=== PATIENT | female | born 2000 | race Caucasian/White ===

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

== ENCOUNTER 2020-11-11 10:55 | Outpatient (REF) | payer OTHER, SELFPAY ==
[2020-11-12 15:04] LABS: COVID-19 RT-PCR UVMMC Result Negative (Negative)
== END 2020-11-11 10:56 | disposition home or self-care (01) ==
LOC: NCHCN 10:55
PROVIDERS: PCP Internal Medicine; Visit Provider Internal Medicine
DX: J02.9 Acute pharyngitis, unspecified (principal)
CPT/HCPCS: U0003

== ENCOUNTER 2021-04-01 13:30 | Outpatient (REF) | payer OTHER, SELFPAY ==
[2021-04-05 14:01] LABS: Chlamydia Result Negative (Negative); GC Result Negative (Negative)
== END 2021-04-01 13:31 | disposition home or self-care (01) ==
LOC: NCHCN 13:30
PROVIDERS: PCP Internal Medicine; Visit Provider Nurse Practitioner Family
DX: Z30.09 Encounter for other general counseling and advice on contraception (principal)
CPT/HCPCS: 87491; 87591

== ENCOUNTER 2021-12-22 17:17 | Outpatient (REF) | payer OTHER, SELFPAY ==
[2021-12-22 20:15] LABS: Abs Immature Grans 0.02 10^3/uL (0.0-0.06); Absolute Basophil Count 0.04 10^3/uL (0.0-0.2); Absolute Lymphocyte Count 1.87 10^3/uL (1.2-3.4); Absolute Monocyte Count 0.52 10^3/uL (0.1-0.8); Absolute Neutrophil Count 5.33 10^3/uL (1.2-6.7); Basophils % 0.5; Eosinophils % 1.3; HGB 12.3 g/dL (11.2-15.7); Immature Grans % 0.3; Lymphocytes % 23.7; MCH 30.4 pg (27.0-33.0); MCHC 33.2 % (32.0-36.0); MCV 91.4 fL (80-95); MPV 9.4 fL (8.0-11.0); Monocytes % 6.6; Neutrophils % 67.6; Nucleated RBC 0 %; Platelet Count 428 10^3/uL (130-400); RBC 4.05 10^6/uL (3.93-5.22); RDW 11.7 % (11.7-14.6); RDW-SD 39.3 fL; WBC 7.88 10^3/uL (4.4-10.8)
[2021-12-22 20:35] LABS: ALT 28 U/L (14-59); AST 15 U/L (15-37); Albumin 4.6 g/dL (3.4-5.0); Alkaline Phosphatase 68 U/L (46-116); Anion Gap 8.7 mmol/L (3-11); BUN 14 mg/dL (7-18); Bilirubin, Total 0.3 mg/dL (0.2-1.0); CO2 27.3 mmol/L (21.0-32.0); CREATININE 0.6 mg/dL (0.55-1.02); Calcium 9.2 mg/dL (8.5-10.1); Chloride 102 mmol/L (98-107); Glucose 101 mg/dL (74-106); Hemoglobin A1C 5.4 % (<5.7); Potassium 4.1 mmol/L (3.5-5.1); Sodium 138 mmol/L (136-145); TSH 1.25 uIU/mL (0.36-3.74)
[2021-12-24 15:08] LABS: Chlamydia Result Negative (Negative); GC Result Negative (Negative)
== END 2021-12-22 17:18 | disposition home or self-care (01) ==
LOC: NCHCN 17:17
PROVIDERS: PCP Internal Medicine; Visit Provider Nurse Practitioner Family
DX: R53.83 Other fatigue (principal); R63.5 Abnormal weight gain; Z11.3 Encounter for screening for infections with a predominantly sexual mode of transmission
CPT/HCPCS: 80053; 87491; 87591; 83036; 84443; 85025

== ENCOUNTER 2022-04-27 02:46 | Outpatient (CLI) | payer OTHER, SELFPAY ==
[2022-04-27 11:58] LABS: Source Nasal/Nares
[2022-04-27 14:06] LABS: COVID-19 PCR Negative (Negative)
== END 2022-04-27 02:47 | disposition home or self-care (01) ==
LOC: LBO 02:46
PROVIDERS: PCP Internal Medicine; Visit Provider Student in an Organized Health Care Education/Training Program
DX: Z20.822 Contact with and (suspected) exposure to COVID-19 (principal); Z01.818 Encounter for other preprocedural examination
CPT/HCPCS: 87635

== ENCOUNTER 2022-04-29 06:08 | Day surgery (SDC) | payer OTHER, SELFPAY ==
[2022-04-29] VITALS (9 sets, daily range): BP systolic 102–126; BP diastolic 41–80; PULSE 56–80; RESP 13–20; TEMP 36.3–36.7; O2SAT 97–100; BMI 32.5
--- NOTE | 2022-04-29 06:51 | W.ANESPRE ---
General Info Date of Service Date Performed: 04/29/22 Height: 5 ft 7 in Weight: 94.3 kg Body Mass Index (BMI): 32.5 Surgical Procedure: Operation Date: 04/29/22 07:40 Proposed Procedure Side Surgeon p Knee ACL Reconstruction Quadriceps Allograft/VS Repair, any indicated Meniscal,Chondral or Synovial Surgery Right Jg Luke MD s Knee Manipulation of Knee Right Jg Luke MD Meds Allergies and Home Medications Allergies Allergy/AdvReac Type Severity Reaction Status Date / Time No Known Allergies Allergy Verified 04/29/22 06:26 Home Medication Medication Instructions Recorded ibuprofen 600 mg tablet 600 mg PO Q8H PRN 03/23/22 Current Visit Medications: Current Medications Generic Name Dose Route Start Last Admin Trade Name Freq PRN Reason Stop Dose Admin Ringer's Solution 1,000 mls @ 30 mls/hr 04/29/22 06:00 IV 05/28/22 23:59 INFUSION ANNE Cefazolin Sodium/Dextrose 2 gm in 50 mls @ 100 mls/hr 04/29/22 06:00 Ancef Duplex IVPB 04/29/22 16:00 PREOP ANNE IV Miscellaneous Supplies 1 each 04/29/22 06:00 Iv Access IV 05/28/22 23:59 DIRECTED ANNE Sodium Chloride 0 ml 04/29/22 06:00 Normal Saline Flush 10 Ml Syr IV 05/28/22 23:59 PRN PRN Sodium Chloride 0 ml 04/29/22 06:00 Normal Saline 10 Ml Vial IJ 05/28/22 23:59 DIRECTED PRN Sterile Water 0 ml 04/29/22 06:00 Water,Injection,Sterile 10 Ml Vial IJ 05/28/22 23:59 DIRECTED PRN PFSH Active Problems Active Problems: Problem Status Onset Code Complete tear of right ACL 03/12/22 S83.511A MCL sprain of right knee S83.411A Stiffness of right knee M25.661 Medical History Medical History ADHD At risk for bleeding associated with tonsillectomy and adenoidectomy Back pain Compulsive behavior Depression Eating disorder Fatigue Surgical History Surgical History H/O wisdom tooth extraction History of tonsillectomy Tobacco Smoking/Tobacco Use Status: Never Alcohol Alcohol Intake: current Alcohol intake frequency: a few times a week Alcohol type: other Substance Use Substance use: Never Substance use type: does not use Vital Signs and Lab Results Vital Signs Most Recent Vital Signs in EMR: Most Recent Vital Signs Temp Pulse Resp BP Pulse Ox 36.7 C 78 16 126/80 98 04/29/22 06:28 04/29/22 06:28 04/29/22 06:28 04/29/22 06:28 04/29/22 06:28 Point of Care Results Point of Care Results: POC- Test(urine) Negative 04/29/22 06:41 Lab Results Blood Type / Crossmatch: No Data to Display Complete Blood Count: No Data to Display Complete Metabolic Panel: No Data to Display Liver Function Panel: No Data to Display Coagulation Panel: No Data to Display Cardiac Panel: No Data to Display Arterial Blood Gas: No Data to Display Venous Blood Gas: No Data to Display Pancreas Panel: No Data to Display Thyroid Panel: No Data to Display Infectious Disease: Coronavirus (COVID-19)(PCR) Negative (Negative) 04/27/22 09:34 Coronavirus 2019 Source Nasal/Nares 04/27/22 09:34 Blood Cultures: No Data to Display Toxicology Panel: No Data to Display Panel: No Data to Display Anesthesia Assessment and Plan Anesthesia History Personal History: No History of Anesthesia Complications Family History: No Family History of Anesthesia Complications Exercise Tolerance Exercise Tolerance: Metabolic Equivalents>4 Pertinent Negatives Pertinent Negatives: No Symptoms of GERD, No Major Cardiovascular Symptoms or Complaints, No Major Pulmonary Symptoms or Complaints and No History of CVA/TIA Cardiac & Pulmonary Exam Cardiac Exam: Normal S1/S2 Heart Sounds Pulmonary Exam: Clear Bilateral Breath Sounds Implantable Cardiac Device Does patient have a Pacemaker or an ICD?: No Airway Exam Known Difficult Airway: No Mallampati Class: 2 Mouth Opening: Normal (> 3cm) Thyromental Distance: Greater than 3 cm Neck Range of Motion: Full ROM Neck Circumference: Normal Teeth Condition: Normal Dentition ASA Classification ASA Score: ASA 2 Emergency Case?: No NPO Status NPO Status: NPO Clears >2 hours, Solids >8 hours Status Status: Negative HCG Anesthesia Plan Resuscitation Status: Full Code Anesthesia Technique: General Anesthesia Airway Planned: Endotracheal Tube Pain Management: Surgeon and patient request nerve block Monitors Used: Standard Monitors
[2022-04-29] MEDS: Lactated Ringers 1,000 ML 30 ML IV (07:20)
[2022-04-29] MEDS: ceFAZolin 2 GM/50 ML BAG IVPB (08:01)
--- NOTE | 2022-04-29 08:15 | ANES.NERVE_ITS ---
Nerve Block Single Injection Procedure Date and Time Date Performed: 04/29/22 Procedure Start: 07:33 Location Where Procedure Performed Procedure Location: Day Surgery Unit Reason Performed: Postoperative Analgesia Requesting Provider: Jg Luke Timeout Performed Timeout Performed: Yes Monitoring Used ECG, Blood Pressure and SpO2 Sterility Sterility: Hand Hygiene, Surgical Cap, Surgical Mask, Sterile Gloves and Chlorhexidine Sedation Given During Procedure Sedation Given (Indicate Dose Given): Versed IV Dose:: 2 mg Patient Mental Status Patient Mental Status: Sedate with meaningful communication Nerve Block 1st Nerve Block: Laterality: Right Block Type: Femoral Needle / Catheter Used: 100mm SonoPlex II Local Anesthetic Bolus (Indicate Dose Given): Lidocaine used for local in filtration of skin, Injected in 3-5ml increments after negative blood aspiration and Bupivacaine 0.5% Dose:: 20 ml Additives (Indicate Dose Given): Precedex Dose:: 50 mcg Ultrasound: Sterile probe cover and gel used Ultrasound Image Saved?: Yes Nerve Stimulator: Not Used Paresthesia: None Procedure Tolerated: No Complications and Patient tolerated well Procedure Outcome: Successful Performed By: Preston Javier 2nd Nerve Block: Laterality: Right Block Type: Popliteal Sciatic Needle / Catheter Used: 100mm SonoPlex II Local Anesthetic Bolus (Indicate Dose Given): Lidocaine used for local infiltration of skin, Injected in 3-5ml increments after negative blood aspiration and Bupivacaine 0.25% Dose:: 20 ml Additives (Indicate Dose Given): Precedex Dose:: 50 mcg Ultrasound: Sterile probe cover and gel used Ultrasound Image Saved?: Yes Nerve Stimulator: Not Used Paresthesia: Right Paresthesia Duration: Transient Procedure Tolerated: No Complications and Patient tolerated well Procedure Outcome: Successful Performed By: Preston Javier
--- NOTE | 2022-04-29 08:30 | W.PM.OP ---
Operative Note Operative Note DATE OF PROCEDURE: 04/29/22 PRE-OP DIAGNOSIS: Right knee: 1. ACL rupture 2. Stiffness/contracture PROCEDURE: Right knee: 1. ACL repair, CPT #62929 2. Bone marrow stimulation via multiple drilling intercondylar lateral wall, CPT #63547 2. Manipulation under anesthesia, CPT# 74453 SURGEON: Jg Luke RELATIONS DIRECTOR: Sofia Moreno ANESTHESIA TYPE: Local By Surgeon, General LMA/ETT and Primary Nerve Block Refer to Anesthesia Record ESTIMATED BLOOD LOSS: 10 TOURNIQUET TIME: 0 COMPLICATIONS: None Patient was transported to: PACU Patient's condition: stable Implants: Arthrex 4.75 mm SwiveLock Indications: Please see complete medical record for details. Findings: Exam under anesthesia: Range of motion improved under anesthesia nearly full extension and flexion to about 125 degrees. Readily able to restore full extension and deep flexion after a few small releases going into deep flexion. Marielos exam with moderately increased translation and vague endpoint compared to contralateral side however, not grossly positive. Anterior and posterior drawer negative. Stable varus valgus exam in extension and flexion. Negative pivot shift. No significant mechanical symptoms on range of motion. Arthroscopic findings: Mild to moderate suprapatellar adhesions. Intact medial lateral menisci. Intact articular cartilage except for grade 1-2 posterior lateral and central lateral tibial plateau. Intact PCL. Unusual appearing ACL injury with intact majority of fibers mid substance and tibial insertion. More proximally deficient shallow fibers to lateral wall with whitney attachments far deep and actually majority scarring to about 12:[address] PCL. Apparent PL bundle injury proximal avulsion distal to bifurcate ridge with preserved AM bundle more proximally and significant scarring vertically and to the PCL. Procedure Description: In the operating room, general anesthesia was induced. The patient was positioned supine on the operating room table. All bony prominences were well-padded. Preoperative antibiotics were administered. The knee was prepped and draped in the usual sterile fashion. The correct patient, procedure, and side of the procedure were all verified prior to incision. Exam under anesthesia was performed. There was residual stiffness going into flexion, which was easily and readily restored with mild suprapatellar releases using a short lever arm and no undue pressure. Full extension was also maintained and deep flexion multiple times to ensure complete motion restored before additional surgery. 10 cc of a 50:50 mixture of bupivacaine and lidocaine containing epinephrine was infiltrated about the planned anteromedial, anterolateral, lateral distal femoral, and pretibial surgery sites. The standard high and tight anterolateral and anteromedial portals were established and a complete diagnostic arthroscopy was performed with relevant findings detailed above. A passport cannula was inserted in both the anteromedial and anterolateral portals. The mechanical shaver is used to resect some suprapatellar adhesions. The ACL remnant was thoroughly inspected with findings above. It was carefully teased off the PCL preserving as much length as possible. It was grasped and found to be good quality. Some remnant tissue remained at the far deep AM bundle near the posterior wall [id number] position with the majority scarred quite vertically in the notch. A small notchplasty was performed to expose subchondral bleeding bone for healing and best visualized ACL origin anatomy for repair. Tissue grasper was used to confirm appropriate mobilization of the majority of the ACL from medially scarred position to the lateral wall. The knee scorpion was used to pass 2x suture tape FiberLinks in cinch mode in the ACL remnant with excellent tissue pullout strength. Provisional reduction was confirmed using the FiberTape retriever and a lateral tension on the sutures. The appropriate repair margin centered about the bifurcate ridge was marked. An accessory low anterior medial portal was established and the repair sutures were withdrawn out this portal. The SwiveLock punch was then brought in and directed to the intercondylar area. With the knee maintained in hyperflexion, the punch was used followed by the tap for the suture anchor. A 4.75 mm SwiveLock was loaded with the ACL repair sutures and successfully deployed with appropriate tension on the repaired ligament. A probe was used to confirm good tissue reapposition and fixation strength of the construct. A 1.6 mm K wire was then brought in the accessory medial portal and used to drill the lateral intercondylar wall in multiple locations penetrating subchondral bone as part of a bone marrow stimulation technique to augment the repair healing. The repaired ACL had a much more appropriate position and tension. There was no impingement in full extension. Marielos exam was now stable. Pivot shift remain negative. The knee and all portals were copiously irrigated and then knee drained of arthroscopic fluid. 3-0 Monocryl was used to close the portals in a buried interrupted fashion. Mastisol, Steri-Strips, Xeroform,and 4 x 4 gauzewere applied. The extremity was wrapped gently with an Cody bandage. A soft knee immobilizer placed. The patient awoke from anesthesia without complication and was transferred to the recovery room in a stable condition.
[2022-04-29] MEDS: EPINEPHrine 30 MG/30 ML VIAL (09:03)
[2022-04-29] MEDS: Lidocaine 1% Multi-Dose W/EPI 1/100,000 50 ML VIAL (09:04)
[2022-04-29] MEDS: Bupivacaine 0.25% Pres-Free 30 ML VIAL (09:04)
--- NOTE | 2022-04-29 10:06 | W.PM.DSUDISC ---
Discharge Plan Disposition Patient Disposition: HOME Condition: Stable Discharge Details Reason For Visit: Right knee surgery Attending Provider: Jg Luke Primary Care Provider: Zander Don Home Meds and New Rx's Prescriptions: New naproxen 250 mg tablet 250 - 500 mg PO BID PRNQty: 40 0RF Rx Instructions: take with a meal aspirin 81 mg tablet,delayed release (DR/EC) 81 mg PO DAILY 14 Days Qty: 14 0RF oxycodone 5 mg tablet 5 - 10 mg PO Q4H MDD 30 mg PRN (Reason: moderate to severe pain) Qty: 18 0RF Discontinued ibuprofen 600 mg tablet 600 mg PO Q8H PRN Discharge Instructions Additional Instructions: Surgery: Right knee arthroscopy with ACL REPAIR and manipulation under anesthesia Activity: Weightbearing as tolerated. Advance range of motion as soon as possible. No knee brace or crutches needed as soon as comfortable. ACCELERATED ACL rehab. A physical therapy prescription will be sent electronically to start in about 2 weeks. Prescriptions: Aspirin 81 mg take 1 daily to prevent a blood clot for 14 days Naproxen 250 mg take 1-2 every 12 hours with a meal as needed for moderate pain Oxycodone 5 mg take 1-2 every 4-6 hours as needed for severe pain You may use [id number] Tylenol (acetaminophen) as needed for mild pain. These pain medications may be taken all at once or in different combinations as needed. Also, recommend Colace (docusate) as a stool softener as surgery and pain medicine cause constipation. You may try [id number] diphenhydramine (Benadryl) 25-50 mg nightly as a sleep aid Dressings: Leave dressing in place for 5 days. May then remove and leave open to air or cover incisions with Band-Aids. May shower after 7 days. Follow-up: 10-[address] Luke Let us know right away if you develop any redness, drainage, fevers, chest pain, or trouble breathing. Do not drink alcohol or drive for at least 24 hours after anesthesia. Please call the office during business hours with any questions or concerns. Discharge Orders Discharge Orders: Discharge Order (Routine); Ordered 04/29/22 Ordered By: Jg Luke DS: Diagnosis Discharge Diagnosis (1) Complete tear of right ACL: Status: Acute (2) Stiffness of right knee: Status: Acute
--- NOTE | 2022-04-29 12:51 | W.ANESPOSTOP ---
Postoperative Evaluation Date, Time and Location Date Performed: 04/29/22 Time Performed: 12:51 Patient Location: Day Surgery Unit Vital Signs Most Recent Imported Vital Signs: Most Recent Vital Signs Temp Pulse Resp BP Pulse Ox 36.3 C L 56 L 15 108/58 L 100 04/29/22 11:45 04/29/22 11:45 04/29/22 11:45 04/29/22 11:45 04/29/22 11:45 Pain Score Most Recent Pain Score: Most Recent Pain Score Pain Level 0 04/29/22 11:45 Assessment Mental Status: Awake (Alert & Oriented to Patient Baseline) Airway and Respiratory Function: Patent airway with normal (patient baseline) respiratory exam Cardiovascular Function: Hemodynamically Stable Hydration Status: Adequately Hydrated Nausea & Vomiting: No Nausea or Vomiting Pain: Pt. Denies Any Pain Peripheral Nerve Block: Regional nerve block not resolved at time of post operative discharge
== END 2022-04-29 13:00 | disposition home or self-care (01) ==
PROVIDERS: PCP Internal Medicine; Visit Provider Student in an Organized Health Care Education/Training Program
PROC: (CPT 29888; principal; 2022-04-29 07:30)
PROC: (CPT 27570; 2022-04-29 07:30)
DX: S83.511A Sprain of anterior cruciate ligament of right knee, initial encounter (principal); M25.661 Stiffness of right knee, not elsewhere classified
CPT/HCPCS: 29888; 29879; 76942; J0690; J1100; J2250; J2405; J2704

== ENCOUNTER 2024-09-11 20:01 | Outpatient (REF) | payer BC, SELFPAY ==
[2024-09-13 12:20] LABS: Chlamydia Result Negative (Negative); GC Result Negative (Negative)
== END 2024-09-11 20:02 | disposition home or self-care (01) ==
LOC: NCHCN 20:01
PROVIDERS: PCP Internal Medicine; Visit Provider Internal Medicine
DX: Z01.419 Encounter for gynecological examination (general) (routine) without abnormal findings (principal)
CPT/HCPCS: 87491; 87591